=== PATIENT | male | born 1930 | race Caucasian/White ===

== ENCOUNTER 2018-04-14 10:17 | Inpatient (IN) ==
[2018-04-14] MEDS ORDERED: CEFTRIAXONE (ER USE ONLY) 1 GM in NS 100 ML IV ONE (10:24)
[2018-04-14] MEDS ORDERED: NS 1,000 ML IV ONE (10:29)
[2018-04-14] MEDS: SALINE FLUSH 10ml SYRINGE IVF PRN (11:26)
--- NOTE | 2018-04-14 11:30 | Emergency Department Report ---
SOB HPI - General Chief Complaint: Shortness of Breath/Dyspnea Stated Complaint: soa - History of Present Illness 87-year-old male presents by EMS with acute shortness of breath. Patient had 2 episodes of reflux last night and may have choked. He is recovering from a pneumonia and has just finished treatment. He did vomit once this morning. Required 2-4 L of oxygen at the group home, prior to this morning did not require any. He has been increasingly weak over the last 2 days. - Related Data Home Medications Medication Instructions Recorded Confirmed Acetaminophen 650 mg PO BID 04/14/18 04/14/18 Acetaminophen [Acetaminophen Extra 500 mg PO Q4H PRN 04/14/18 04/14/18 Strength] Albuterol/Ipratropium [Duoneb] 1 unit AEROSOL QID PRN 04/14/18 04/14/18 Amlodipine [Norvasc] 10 mg PO WS 04/14/18 04/14/18 Aspirin [Adult Aspirin] 81 mg PO DAILY 04/14/18 04/14/18 Atorvastatin [Lipitor] 20 mg PO WS 04/14/18 04/14/18 Bisacodyl Supp [Dulcolax] 10 mg RECTALLY DAILY PRN 04/14/18 04/14/18 Docusate Sodium [Colace] 100 mg PO BID PRN 04/14/18 04/14/18 Latanoprost [Latanoprost] 1 drop EACH EYE HS 04/14/18 04/14/18 Magnesium Hydroxide [Milk of 30 ml PO DAILY PRN 04/14/18 04/14/18 Magnesia] Magnesium Oxide [Magnesium] 400 mg PO BIDWM 04/14/18 04/14/18 Mirtazapine [Remeron] 15 mg PO HS 04/14/18 04/14/18 Nitroglycerin [Nitrostat] 0.4 mg SL Q5MIN3 PRN 04/14/18 04/14/18 Ondansetron HCl [Zofran] 4 mg PO TIDWM 04/14/18 04/14/18 Pantoprazole Sodium [Protonix] 40 mg PO BIDBS 04/14/18 04/14/18 Pramipexole Di-HCl [Mirapex] 0.125 mg PO HS 04/14/18 04/14/18 Pramoxine HCl/Menthol [Gold Menendez 1 applicatio TP TID PRN 04/14/18 04/14/18 Med Anti-Itch Cream] Ranitidine [Zantac] 150 mg PO HS 04/14/18 04/14/18 Sennosides [Senna] 8.6 mg PO DAILY 04/14/18 04/14/18 Sucralfate [Carafate] 1 gm PO QID 04/14/18 04/14/18 Tramadol [Ultram] 50 mg PO BID 04/14/18 04/14/18 hydroCHLOROthiazide 25 mg PO DAILY 04/14/18 04/14/18 [Hydrochlorothiazide] Allergies Allergy/AdvReac Type Severity Reaction Status Date / Time No Known Drug Allergies Allergy Unknown Verified 04/14/18 10:20 Review of Systems All systems: reviewed and negative except as stated [facility] Medical History (Last Reviewed 04/05/18 @ 09:08 by Mouna Locke MD) Angina at rest (Acute Medical) Bone disorder (Acute Medical) CAD (coronary artery disease) (Acute Medical) Cataracts, bilateral (Acute Medical) GERD (gastroesophageal reflux disease) (Acute Medical) Glaucoma (Acute Medical) Heart attack (Acute Medical) High cholesterol (Acute Medical) Hypertension (Acute Medical) Prostate cancer (Acute Medical) Surgical History: 1. Right inguinal hernia repair at some time when the patient was in his 30s at [facility] at [place], [place]. 2. Left inguinal hernia repair at some time when the patient was in his 30s at [place], [place]. 3. Appendectomy at some time in the 1960s at [place], [place]. 4. Ankle operation at some time of the by Dr. Silva at [facility] at [place], [place]. 5. Prostate biopsy in 2005 or 2006 performed for evaluation of an elevated PSA. The patient was found to have prostate cancer at this time. This was treated with radiation therapy with CyberKnife treatment. 6. Cardiac catheterization with placement of a coronary artery stent in [address] Garcia at [facility] at [place], [place]. 7. Cardiac catheterization with placement of a coronary artery stent at the left anterior descending coronary artery on 12/21/[address] Hyatt at [facility] at [place], [place]. Discharge diagnoses for this hospitalization were unstable angina, hypertension, gastroesophageal reflux disease, history of coronary artery disease, history of hyperlipidemia and history of prostatic malignancy. 8. Cardiac catheterization with placement of drug-eluting coronary artery stent at the second marginal coronary artery on 02/21/[address] Hyatt at [facility] at [place], [place]. 9. Colonoscopy on 08/07/[address] Raygoza at [facility] at [place], [place]. The patient was found to have descending and sigmoid colon diverticulosis at the time of this procedure. Findings were otherwise normal. Postoperative diagnosis was family history of colon carcinoma. 10. Laser surgery on the eyes to treat glaucoma in 2014 at [place], [place]. Family History: Family History (Last Reviewed 04/05/18 @ 09:08 by Mouna Locke MD) Father GI bleed Cancer of colon Sister High blood pressure Stroke - Social History Smoking status: Former smoker Substance use type: does not use Alcohol intake: never Household members: none Current occupational status: retired Physical Exam - Limitations Limitations: no limitations - General General appearance: alert - Normal Exams: Head:: Normocephalic without trauma Cardiovascular:: without murmur or gallop, Pulses 2+ all extremities, capillary refill, <2 seconds all extremities Abdomen:: Bowel sounds positive, soft, non-tender, non-distended, no hepatosplenomegaly, masses or bruits noted Psychiatric:: Patient exhibits, appropriate attention, emotion and affect - Chest Chest inspection: Present: normal inspection, symmetric chest wall rise. Absent : tenderness - Respiratory Respiratory exam: Present: crackles (minimal but left greater than right) Course Vital Signs Temperature 99.9 F 04/14/18 10:17 Pulse Rate 99 04/14/18 10:17 Respiratory Rate 22 04/14/18 10:17 Blood Pressure 147/67 H 04/14/18 10:17 Pulse Oximetry 94 04/14/18 10:17 Temperature 99.9 F 04/14/18 10:17 Pulse Rate 99 04/14/18 10:17 Respiratory Rate 22 04/14/18 10:17 Blood Pressure 147/67 H 04/14/18 10:17 Pulse Oximetry 94 04/14/18 10:17 Shortness of Breath/Dyspnea - Lab Data Result diagrams: 04/14/18 11:00 04/14/18 11:00 Lab Results 04/14/18 04/14/18 04/14/18 Range/Units 11:00 11:00 11:00 WBC 16.6 H (4.5-11.0) T/MM3 RBC 4.45 L (4.50-5.90) M/MM3 Hgb 12.5 L (13.5-17.5) GM/DL Hct 38.2 L (41-53) % MCV 85.8 (80-100) UM3 MCH 28.1 (26-34) UUG MCHC 32.7 (31-37) GM/DL RDW Std Deviation 42.8 (36.9-50.2) FL Plt Count 369 (130-400) T/MM3 MPV 9.4 (9.4-12.4) UM3 Immature Gran % (Auto) Not performed Neut % (Auto) Not performed Lymph % (Auto) Not performed [place] % (Auto) Not performed Eos % (Auto) Not performed Baso % (Auto) Not performed Neut # (Auto) Not performed Lymph # (Auto) Not performed [place] # (Auto) Not performed Eos # (Auto) Not performed Baso # (Auto) Not performed Abs Immat Gran (auto) Not performed D-Dimer 654 H (0-230) NG/ML ABG pH (7.350-7.450) ABG pCO2 (34.0-45.0) MMHG ABG pO2 (80.0-100.0) MMHG ABG HCO3 (22.0-26.0) MEQ/L ABG Total CO2 (23.0-27.0) MEQ/L ABG O2 Saturation (95.0-98.0) % ABG Base Excess (-2.0-2.0) MMOL/L O2 Delivery Method FiO2 (liters per min) LPM Plasma Lactate 1.3 (0.6-2.2) MMOL/L 04/14/18 Range/Units 11:22 WBC (4.5-11.0) T/MM3 RBC (4.50-5.90) M/MM3 Hgb (13.5-17.5) GM/DL Hct (41-53) % MCV (80-100) UM3 MCH (26-34) UUG MCHC (31-37) GM/DL RDW Std Deviation (36.9-50.2) FL Plt Count (130-400) T/MM3 MPV (9.4-12.4) UM3 Immature Gran % (Auto) Neut % (Auto) Lymph % (Auto) [place] % (Auto) Eos % (Auto) Baso % (Auto) Neut # (Auto) Lymph # (Auto) [place] # (Auto) Eos # (Auto) Baso # (Auto) Abs Immat Gran (auto) D-Dimer (0-230) NG/ML ABG pH 7.496 H (7.350-7.450) ABG pCO2 39 (34.0-45.0) MMHG ABG pO2 75.7 L (80.0-100.0) MMHG ABG HCO3 30.2 H (22.0-26.0) MEQ/L ABG Total CO2 31.4 H (23.0-27.0) MEQ/L ABG O2 Saturation 96.1 (95.0-98.0) % ABG Base Excess 6.5 H (-2.0-2.0) MMOL/L O2 Delivery Method Cannula FiO2 (liters per min) 3.5 LPM Plasma Lactate (0.6-2.2) MMOL/L - Radiology Data Attestation: I reviewed the patient's radiology results. - EKG Data EKG #1 EKG attestation: Yes: I reviewed and interpreted this EKG. EKG results narrative: 94 bpm EKG shows normal: sinus rhythm Rate: normal Rhythm: NSR [place]/QRS: left axis deviation Interpretation: nonspecific ST-T wave changes Disposition Prescriptions: No Action Acetaminophen [Acetaminophen Extra Strength] 500 mg PO Q4H PRN PRN Reason: Pain Docusate Sodium [Colace] 100 mg PO BID PRN PRN Reason: Constipation Nitroglycerin [Nitrostat] 0.4 mg SL Q5MIN3 PRN PRN Reason: Chest Pain Magnesium Hydroxide [Milk of Magnesia] 30 ml PO DAILY PRN PRN Reason: Constipation Ranitidine [Zantac] 150 mg PO HS Albuterol/Ipratropium [Duoneb] 1 unit AEROSOL QID PRN PRN Reason: Shortness Of Air/Wheezing Sucralfate [Carafate] 1 gm PO QID Sennosides [Senna] 8.6 mg PO DAILY Pramipexole Di-HCl [Mirapex] 0.125 mg PO HS Pantoprazole Sodium [Protonix] 40 mg PO BIDBS Ondansetron HCl [Zofran] 4 mg PO TIDWM Mirtazapine [Remeron] 15 mg PO HS Latanoprost [Latanoprost] 1 drop EACH EYE HS hydroCHLOROthiazide [Hydrochlorothiazide] 25 mg PO DAILY Atorvastatin [Lipitor] 20 mg PO WS Aspirin [Adult Aspirin] 81 mg PO DAILY Amlodipine [Norvasc] 10 mg PO WS Acetaminophen 650 mg PO BID Pramoxine HCl/Menthol [Gold Menendez Med Anti-Itch Cream] 1 applicatio TP TID PRN PRN Reason: Itching Bisacodyl Supp [Dulcolax] 10 mg RECTALLY DAILY PRN PRN Reason: Constipation Tramadol [Ultram] 50 mg PO BID Magnesium Oxide [Magnesium] 400 mg PO BIDWM Referrals: Analisa York MD [Primary Care Provider] -
[2018-04-14] MEDS ORDERED: SALINE FLUSH 10ml SYRINGE ONE ×2 (11:42→12:35)
[2018-04-14] MEDS ORDERED: IOHEXOL 350mg/ml 75ml INJECTION ONE (11:42)
[2018-04-14 15:24] VITALS: BMI 25.5
--- NOTE | 2018-04-14 16:23 | History & Physical Report ---
History of Present Illness Date: 04/14/18 Chief complaint: SOA, fever HPI: Patient is an 87 yo male who presented to ER this am by EMS from [place] due to acute SOA. His sats at the NE this am were in the low 70's. He usually requires no O2. He reports he had chills and a temp of 101 when he woke up. When he sat up in bed to use the bathroom, he became nauseous and vomited this morning. He has severe reflux and sleeps with the head of his bed elevated. He was recently hospitalized at [facility] (03/02-03/06) for aspiration pneumonia and UTI. Daughter reports he had elevated liver enzymes during the stay with no definitive etiology. They resolved spontaneously. Had neg MRCP and Hepatitis panel and most likely dx was a passed gallstone. He was hospitalized in [place] March 24- for n/v and low Mg, K. On March 27, he woke up and had foot pain and swelling. He has no known injury, but at this time, he was living at home independently and daughter reports he has short term memory issues. 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 Since this injury, he has been in full care at [place] on non-weight bearing status. Up until this am, he reports he was feeling ok. His daughter reports pt has no appetite and that he worries about what he eats b/c of his reflux. He has no trouble swallowing and has had multiple swallow studies on previous hospitalizations which daughter reports were nl. He had an esophagram on 02/08/18 which revealed severe GERD. He had an EGD performed 02/19/[address] Stack which showed distal esophagitis with multiple erosions at distal esophagus and shallow pyloric channel ulcer, neg h pylori. In ER, pt had CXR and CTA showing b/l pulmonary infiltrates, required 4L of O2 to keep sats>90% and received a liter of NS and 1gram of Rocephin. WBC 16.6, elevated D Dimer, potassium 3.4. Neg UA and influenza. Review of Systems All systems PM: 10-point ROS was reviewed, no additional remarkable complaints except Review of systems: GERD, vomiting this am, fever, chills, SOA, some cough Past Medical History Medical History: Medical History (Last Updated 04/14/18 @ 16:48 by JOAN Alexis) Muscle disorder Angina at rest CAD (coronary artery disease) Cataracts, bilateral GERD (gastroesophageal reflux disease) Glaucoma Heart attack High cholesterol Hypertension Prostate cancer Surgical History: 1. Right inguinal hernia repair at some time when the patient was in his 30s at [facility] at [place], [place]. 2. Left inguinal hernia repair at some time when the patient was in his 30s at [place], [place]. 3. Appendectomy at some time in the at [place], [place]. 4. Ankle operation at some time of the by Dr. Silva at [facility] at [place], [place]. 5. Prostate biopsy in 2005 or 2006 performed for evaluation of an elevated PSA. The patient was found to have prostate cancer at this time. This was treated with radiation therapy with CyberKnife treatment. 6. Cardiac catheterization with placement of a coronary artery stent in [address] Garcia at [facility] at [place], [place]. 7. Cardiac catheterization with placement of a coronary artery stent at the left anterior descending coronary artery on 12/21/[address] Hyatt at [facility] at [place], [place]. Discharge diagnoses for this hospitalization were unstable angina, hypertension, gastroesophageal reflux disease, history of coronary artery disease, history of hyperlipidemia and history of prostatic malignancy. 8. Cardiac catheterization with placement of drug-eluting coronary artery stent at the second marginal coronary artery on 02/21/[address] Hyatt at [facility] at [place], [place]. 9. Colonoscopy on 08/07/[address] Raygoza at [facility] at [place], [place]. The patient was found to have descending and sigmoid colon diverticulosis at the time of this procedure. Findings were otherwise normal. Postoperative diagnosis was family history of colon carcinoma. 10. Laser surgery on the eyes to treat glaucoma in 2014 at [place], [place]. 11. EGD 02/19/18 (Dr Stack) -distal esophagitis, pyloric channel ulcer, neg h pylori. Family History: Family History Father GI bleed Cancer of colon Sister High blood pressure Stroke Family History: As Above - Social History Smoking status: Former smoker (smoked for 2 yrs in his 20's) Substance use type: does not use Alcohol intake frequency: does not drink Housing: group home (full care ([place]) (prior to March 27 pt lived at home in [facility])) Current occupational status: retired (patient insurance clerk) Social history: PCP- Analisa York. Currently under the care of Dr Carmona while at [place]. Cardiology - Dr. Hyatt Medications Home Medications Medication Instructions Recorded Confirmed Type Acetaminophen 650 mg PO BID 04/14/18 04/14/18 History Acetaminophen [Acetaminophen Extra 500 mg PO Q4H PRN 04/14/18 04/14/18 History Strength] Albuterol/Ipratropium [Duoneb] 1 unit AEROSOL QID PRN 04/14/18 04/14/18 History Amlodipine [Norvasc] 10 mg PO WS 04/14/18 04/14/18 History Aspirin [Adult Aspirin] 81 mg PO DAILY 04/14/18 04/14/18 History Atorvastatin [Lipitor] 20 mg PO WS 04/14/18 04/14/18 History Bisacodyl Supp [Dulcolax] 10 mg RECTALLY DAILY PRN 04/14/18 04/14/18 History Docusate Sodium [Colace] 100 mg PO BID PRN 04/14/18 04/14/18 History Latanoprost [Latanoprost] 1 drop EACH EYE HS 04/14/18 04/14/18 History Magnesium Hydroxide [Milk of 30 ml PO DAILY PRN 04/14/18 04/14/18 History Magnesia] Magnesium Oxide [Magnesium] 400 mg PO BIDWM 04/14/18 04/14/18 History Mirtazapine [Remeron] 15 mg PO HS 04/14/18 04/14/18 History Nitroglycerin [Nitrostat] 0.4 mg SL Q5MIN3 PRN 04/14/18 04/14/18 History Ondansetron HCl [Zofran] 4 mg PO TIDWM 04/14/18 04/14/18 History Pantoprazole Sodium [Protonix] 40 mg PO BIDBS 04/14/18 04/14/18 History Pramipexole Di-HCl [Mirapex] 0.125 mg PO HS 04/14/18 04/14/18 History Pramoxine HCl/Menthol [Gold Menendez 1 applicatio TP TID PRN 04/14/18 04/14/18 History Med Anti-Itch Cream] Ranitidine [Zantac] 150 mg PO HS 04/14/18 04/14/18 History Sennosides [Senna] 8.6 mg PO DAILY 04/14/18 04/14/18 History Sucralfate [Carafate] 1 gm PO QID 04/14/18 04/14/18 History Tramadol [Ultram] 50 mg PO BID 04/14/18 04/14/18 History hydroCHLOROthiazide 25 mg PO DAILY 04/14/18 04/14/18 History [Hydrochlorothiazide] Allergies Allergy/AdvReac Type Severity Reaction Status Date / Time No Known Drug Allergies Allergy Unknown Verified 04/14/18 10:20 Exam Vital Signs: Temperature 97.8 F 04/14/18 15:21 Pulse Rate 90 04/14/18 15:21 Respiratory Rate 20 04/14/18 15:21 Blood Pressure 136/67 04/14/18 15:21 Pulse Oximetry 93 04/14/18 15:21 Height/Weight/BMI: Height 1.63 m Weight 67.6 kg Body Mass Index 25.5 - Constitutional Present: no acute distress, well nourished, well developed - Routine HEENT Exam Head: Present: normocephalic, atraumatic Eye: Present: EOMI, PERRL ENT: Present: mucous membranes moist, oropharynx clear - Routine Neck Exam Present: supple. Absent: lymphadenopathy, thyromegaly - Routine Respiratory Exam Present: CTA bilaterally. Absent: wheezes - Routine Cardiovascular Exam Present: RRR, no murmur - Routine Abdominal Exam Present: soft, normoactive bowel sounds. Absent: tenderness, distended - Routine Extremities Exam Present: no edema, normal capillary refill Comments: LE atrophy (chronic). R lower leg/foot casted. - Routine Skin Exam Present: dry, warm - Routine Neurological Exam Present: alert, oriented X3, CN II-XII intact - Routine Psychiatric Exam Present: normal affect, cooperative Results - Labs CBC & Chem 7: 04/14/18 11:00 04/14/18 11:00 - Imaging and Cardiology CT scan - chest Additional comments: b/l pulmonary infiltrates -worse in L lung Assessment and Plan (1) Acute respiratory failure with hypoxia Current visit: Yes Status: Acute (2) Aspiration pneumonia Current visit: Yes Status: Acute Assessment and Plan: Assessment Respiratory failure with hypoxia Aspiration pneumonia - likely secondary to severe GERD Severe GERD Hypokalemia Right metatarsal fractures - currently casted and on non-weightbearing status Erosive esophagitis/shallow pyloric channel ulcer CAD (H/o CO and stent placement x 3) High cholesterol Hypertension Prostate cancer (tx with radiation) Cataracts, bilateral Glaucoma Short term memory loss Plan Admit, IP Has already received Rocephin in ER. Dr. Greene to determine further antibiotic regimen. BSx2 drawn in ER. Lactate was neg - reflex order DC'd. Repeat labs in am to follow blood counts and renal function. Sputum culture. Duonebs, acapella, O2 prn. Continue PPI, Zantac and carafate. Elevate HOB. ST, OT, PT. Will allow cardiac diet (daughter prefers avoiding milk/ice cream as she feels this worsens his GERD) after bedside swallow eval as he has had w- u for aspiration and etiology is not a swallowing issue. Bowel motivation w/ senna, docusate (per daughter request) and Miralax as pt has decreased rectal tone resulting from radiation to prostate. Non-weightbearing to RLE. Lovenox/SCD's for DVT Ppx. Code status reviewed with pt and daughter - DNR. Care to return to Dr. Carmona on dismissal back to [place]. DVT Prophylaxis: SCD's - Physician Narrative Physician: Racquel Greene MD Narrative: Date: 04/14/18 Time: 1829 I have independently evaluated and examined this patient. I reviewed the chart, the patient's history, and the PHOTOGRAPHIC COLORIST/PA's documented findings as above. We discussed and formulated the assessment and plan as above with additions as below: Mr. Walker was reported to have several episodes of reflux last night with possible choking and suspected aspiration. This morning he was hypoxic and per EMS records had a temperature of 103.9. He was transferred to the emergency room where x-ray revealed left-sided infiltrate and CTA confirmed infiltrates bilaterally left > right. Patient is admitted for management of probable aspiration pneumonia. When seen late this afternoon he reported he was breathing more comfortably and denied pleuritic pain. NAD, soft spoken, mild flattening of the left nasolabial fold Respirations nonlabored, decreased breath sounds bilaterally without wheezing, crackles, coarse sounds. Abdomen benign Chest x-ray reviewed by [id number] patchy infiltrates CTA also reviewed by myself demonstrating left greater than right infiltrates; report reviewed-no evidence of PE. Elevated white count, potassium slightly depressed. Given recent hospitalization a believe expanded antibiotics are necessary to cover for healthcare associated pathogens. Will initiate vancomycin and Zosyn initially; will hold off on adding Levaquin due to patient's underlying muscle disorder. Oxygen titrated from 4 L to 2 L this afternoon. Potassium supplemented-reassess in a.m. Hospital Course Summary Disclaimer: The visit summary below is not to be considered part of the above Progress Note. Hospital Course: 04/14/18 Admit, IP Has already received Rocephin in ER. Converted to Zosyn/vancomycin due to recent hospitalization and need for healthcare pathogen coverage. BSx2 drawn in ER. Lactate was neg - reflex order DC'd. Repeat labs in am to follow blood counts and renal function. Sputum culture. Duonebs, acapella, O2 prn. Continue PPI, Zantac and carafate. Elevate HOB. ST, OT, PT. Will allow cardiac diet (daughter prefers avoiding milk/ice cream as she feels this worsens his GERD) after bedside swallow eval as he has had w- u for aspiration and etiology is not a swallowing issue. Bowel motivation w/ senna, docusate (per daughter request) and Miralax as pt has decreased rectal tone resulting from radiation to prostate. Non-weightbearing to RLE. Lovenox/SCD's for DVT Ppx. Code status reviewed with pt and daughter - DNR. Care to return to Dr. Carmona on dismissal back to [place].
[2018-04-14] MEDS ORDERED: ALBUTEROL/IPRATROPIUM 2.5mg-0.5mg/3ml NEB AEROSOL PRN (17:12)
[2018-04-14] MEDS ORDERED: ACETAMINOPHEN 500 MG TABLET PO PRN (17:12)
[2018-04-14] MEDS ORDERED: GOLD BOND TP PRN (17:12)
[2018-04-14] MEDS ORDERED: BISACODYL 10 MG SUPPOSITORY RECTALLY PRN (17:12)
[2018-04-14] MEDS ORDERED: NITROGLYCERIN 0.4 MG SUBLINGUAL TABLET SL PRN (17:12)
[2018-04-14] MEDS ORDERED: ATORVASTATIN 20 MG TABLET PO SCH (17:30)
[2018-04-14] MEDS ORDERED: VANCOMYCIN - PHARMACY CONSULT MC ONE (18:28)
[2018-04-14] MEDS: ONDANSETRON 4 MG TABLET PO SCH (18:28)
[2018-04-14] MEDS: PANTOPRAZOLE 40 MG TABLET PO SCH (18:29)
[2018-04-14] MEDS: MAGNESIUM OXIDE 400 MG TABLET PO SCH (18:29)
[2018-04-14] MEDS: AMLODIPINE 10 MG TABLET PO SCH (18:29)
[2018-04-14] MEDS: PIPERACILLIN/TAZOBACTAM 4.5 GM in NS 100 ML IV SCH (20:11)
[2018-04-14] MEDS ORDERED: NS FLUSH BAG 500ml IV PRN (20:13)
[2018-04-14] MEDS: ALBUTEROL/IPRATROPIUM 2.5mg-0.5mg/3ml NEB AEROSOL SCH (20:40)
[2018-04-14] MEDS ORDERED: SUCRALFATE 1 GM TABLET PO SCH (21:00)
[2018-04-14] MEDS ORDERED: PRAMIPEXOLE DI HCL 0.125 MG PO SCH (21:00)
[2018-04-14] MEDS: TRAMADOL 50 MG TABLET PO SCH (21:55)
[2018-04-14] MEDS: ACETAMINOPHEN 325 MG TABLET PO SCH (21:56)
[2018-04-14] MEDS: MIRTAZAPINE 15 MG TABLET PO SCH (21:57)
[2018-04-14] MEDS: RANITIDINE 150 MG TABLET PO SCH (21:58)
[2018-04-15] MEDS: PIPERACILLIN/TAZOBACTAM 4.5 GM in NS 100 ML IV SCH ×5 (01:28→23:42)
[2018-04-15] MEDS: LATANOPROST 0.005% EYE DROPS 2.5ml EACH EYE SCH ×2 (06:31→21:23)
[2018-04-15] MEDS: SUCRALFATE 1 GM TABLET PO SCH ×4 (06:52→21:22)
[2018-04-15] MEDS: ALBUTEROL/IPRATROPIUM 2.5mg-0.5mg/3ml NEB AEROSOL SCH ×4 (07:26→19:36)
--- NOTE | 2018-04-15 09:46 | Pharmacy Consult-Antibiotics ---
Pharmacy Consult-Vancomycin - Laboratory Information WBC 10.9 T/MM3 (4.5-11.0) 04/15/18 04:21 BUN 19.0 MG/DL (9-20) 04/15/18 04:20 Creatinine 1.1 mg/dL (0.8-1.5) 04/15/18 04:20 - Consult Information VANCOMYCIN CONSULT: Day2 Dx: Pneuomonia Current Renal Fx: SCr = 1.1 mg/dl. Estimated Cr Cl = 45 mL/min Started Vancomycin 1,000 mg iv every 12 hours and will give two dose at that frequency and then change the Vancomycin to 1,000 mg iv every 18 hours starting 04/16 @ 0300. The Pharmacy will continue to monitor and adjust regimen to maintain therapeutic levels. Thank you. Collin Strickland, Pharmacist
[2018-04-15] MEDS: PANTOPRAZOLE 40 MG TABLET PO SCH ×2 (10:05→17:57)
[2018-04-15] MEDS: ACETAMINOPHEN 325 MG TABLET PO SCH ×2 (10:05→21:23)
[2018-04-15] MEDS: ONDANSETRON 4 MG TABLET PO SCH ×3 (10:06→17:57)
[2018-04-15] MEDS: MAGNESIUM OXIDE 400 MG TABLET PO SCH ×2 (10:06→17:57)
[2018-04-15] MEDS: ASPIRIN *EC* 81 MG TABLET PO SCH (10:06)
[2018-04-15] MEDS: ENOXAPARIN 40 MG/0.4 ML INJECTION SQ SCH (10:06)
--- NOTE | 2018-04-15 11:02 | CT Scan Report ---
Indication: dyspnea sudden onset, elevated d-dimer PROCEDURE: CT angio pulm emboli: Encounter: Initial Comparison: None Technique: Axial CT pulmonary angiographic phase images were performed through the chest after the administration of intravenous contrast. Coronal and Sagittal MIP reconstructed images were created and reviewed. Automated Exposure Control and Iterative Reconstruction dose reducing techniques were utilized. Contrast: Omnipaque 350 74 mL Findings: Pulmonary arteries: Exam is diagnostic to the subsegmental pulmonary arterial level. No filling defects identified to suggest a pulmonary embolus. Other findings: Patchy groundglass areas of airspace opacity and airspace consolidation noted in the left upper and left lower lobes. Minimal airspace opacity in the right lower lobe. No pneumothorax. No pleural effusion. No axillary or mediastinal adenopathy. Heart size is normal. Small pericardial effusion. The upper abdomen shows large gallstones. Impression: No pulmonary embolus. Left-sided pneumonia. There is a preliminary report by virtual radiologic. .
--- NOTE | 2018-04-15 11:20 | XRay Report ---
INDICATION: dyspnea, soa PROCEDURE: CHEST 2-VIEWS UPRIGHT (PA & LAT) Encounter: Initial COMPARISON: CT chest from the same date FINDINGS: Left-sided airspace consolidation is again noted and better evaluated on the CT. Right lung is radiographically clear. No gross pleural effusion or pneumothorax. Heart size and mediastinal contours are stable. Pulmonary vascularity appears normal. Impression: Left-sided pneumonia or aspiration. .
[2018-04-15] MEDS: TRAMADOL 50 MG TABLET PO SCH ×2 (11:25→21:22)
[2018-04-15] MEDS: POLYETHYL GLYCOL 3350 17gm PACKET PO SCH (11:25)
[2018-04-15] MEDS: SENNOSIDES 8.6 MG TABLET PO SCH (11:26)
[2018-04-15] MEDS: LIDOCAINE 1% 2ml INJ 10 MG, POTASSIUM CHLORIDE INJ 10 MEQ in NS 100 ML IV SCH ×4 (11:30→17:23)
[2018-04-15] MEDS ORDERED: PNEUMOCOCCAL 13 VACCINE 0.5ml INJECTION IM ONE (13:56)
--- NOTE | 2018-04-15 14:35 | Progress Note ---
- Date 04/15/18 Subjective: Mr. Walker reported that he felt really cold and shaky inside at that his teeth hadn't started chattering yet when I saw him late this morning. He reports that this is how he felt yesterday before coming to the hospital and that he was shaking all over at that time. This corresponded to development of temperature of 103.8 per EMS report. Nursing reported that the patient briefly lost consciousness while they were working in the room earlier and looks at them blankly and had some brief shaking. Patient reports that he was coughing vigorously and reports that he coughed so hard that his head began to swirl and he felt like he passed out at that time corresponding when the nurse was in the room. He denies dyspnea today but reports he continues to cough out intermittently with no sputum production. He's had no nausea and was able to eat earlier today without any difficulty; he reports no apparent reflux yesterday evening or today. He slept well. He denies chest pain or pleuritic chest pain. Objective Vital signs: Temperature 97.3 F 04/15/18 07:39 Pulse Rate 75 04/15/18 07:39 Respiratory Rate 18 04/15/18 10:29 Blood Pressure 108/65 04/15/18 07:39 Pulse Oximetry 98 -2 L 04/15/18 10:29 NAD, alert Obviously chilling at time of my exam (not rigors however), skin temperature is warm but not hot Conjunctiva clear, sclera anicteric, neck supple Respirations are nonlabored with good airflow breath sounds are coarse at the left lung field posteriorly 1/2 up; no wheezing appreciated Regular rhythm, S1-S2, soft systolic murmur Abdomen is soft, nontender, and bowel sounds are present Extremities without edema Patient moving upper extremities well; right lower extremity in a short leg cast Height/Weight/BMI: Height 1.63 m Weight 67.8 kg Body Mass Index 25.5 Results - Labs CBC & Chem 7: 04/15/18 04:21 04/15/18 04:20 Microbiology Results: Microbiology 04/15/18 13:08 Peripheral/Iv Start Blood Culture - Preliminary Culture Initiated - Results Pending 04/15/18 13:14 Peripheral/Iv Start Blood Culture - Preliminary Culture Initiated - Results Pending Blood cultures 2 and urine culture obtained 6/9/18 all no growth after 1 day Assessment and Plan (1) Acute respiratory failure with hypoxia Current visit: Yes Status: Acute (2) Aspiration pneumonia Current visit: Yes Status: Acute Assessment and Plan: Assessment Respiratory failure with hypoxia Aspiration pneumonia - likely secondary to severe GERD Severe GERD Hypokalemia Right metatarsal fractures - currently casted and on non-weightbearing status Erosive esophagitis/shallow pyloric channel ulcer CAD (H/o [place] and stent placement x 3) High cholesterol Hypertension Prostate cancer (tx with radiation) Cataracts, bilateral Glaucoma Short term memory loss Hypokalemia Probable cough syncope 04/15/18 Plan: Blood cultures drawn this morning shortly after patient was having episode of chills. Continue current antibiotics pending initial blood cultures-if negative at 48 hours we'll discontinue vancomycin. Oxygenation has improved overall and patient has not had recurrent high-grade fever. MAXIMUM TEMPERATURE following hospitalization 100.2. Leukocytosis significantly improved. Continue respiratory care was with breathing treatments. Continue usual regimen for reflux; speech therapy to reassess in a.m. PT/OT consults in a.m.-nonweightbearing RLE. Hemodynamically stable. Episode with altered loss of consciousness following coughing consistent with cough syncope which may of had minor seizure activity associated with it. Replace potassium orally and IV. Chest x-ray in a.m. Discussed with nursing. DVT Prophylaxis: Lovenox Resuscitation Status: Do Not Intubate - Physician Narrative Narrative: Date: 04/15/18 Time: 1430 Hospital Course Summary Disclaimer: The visit summary below is not to be considered part of the above Progress Note. Hospital Course: 04/14/18 Admit, IP Has already received Rocephin in ER. Converted to Zosyn/vancomycin due to recent hospitalization and need for healthcare pathogen coverage. BSx2 drawn in ER. Lactate was neg - reflex order DC'd. Repeat labs in am to follow blood counts and renal function. Sputum culture. Duonebs, acapella, O2 prn. Continue PPI, Zantac and carafate. Elevate HOB. ST, OT, PT. Will allow cardiac diet (daughter prefers avoiding milk/ice cream as she feels this worsens his GERD) after bedside swallow eval as he has had w- u for aspiration and etiology is not a swallowing issue. Bowel motivation w/ senna, docusate (per daughter request) and Miralax as pt has decreased rectal tone resulting from radiation to prostate. Non-weightbearing to RLE. Lovenox/SCD's for DVT Ppx. Code status reviewed with pt and daughter - DNR. Care to return to Dr. Carmona on dismissal back to [place]. 04/15/18 Blood cultures drawn this morning shortly after patient was having episode of chills. Continue current antibiotics pending initial blood cultures-if negative at 48 hours we'll discontinue vancomycin. Oxygenation has improved overall and patient has not had recurrent high-grade fever. MAXIMUM TEMPERATURE following hospitalization 100.2. Leukocytosis significantly improved. Continue respiratory care was with breathing treatments. Continue usual regimen for reflux; speech therapy to reassess in a.m. PT/OT consults in a.m.-nonweightbearing RLE. Hemodynamically stable. Episode with altered loss of consciousness following coughing consistent with cough syncope which may of had minor seizure activity associated with it. Replace potassium orally and IV.
[2018-04-15] MEDS: AMLODIPINE 10 MG TABLET PO SCH (17:57)
[2018-04-15] MEDS: MIRTAZAPINE 15 MG TABLET PO SCH (21:21)
[2018-04-15] MEDS: RANITIDINE 150 MG TABLET PO SCH (21:21)
[2018-04-15] MEDS: PRAMIPEXOLE 0.25 MG TABLET PO SCH (21:21)
[2018-04-15] MEDS: ATORVASTATIN 20 MG TABLET PO SCH (21:24)
[2018-04-16] MEDS: PIPERACILLIN/TAZOBACTAM 4.5 GM in NS 100 ML IV SCH ×2 (06:26→13:34)
[2018-04-16] MEDS: SUCRALFATE 1 GM TABLET PO SCH ×4 (06:27→20:55)
[2018-04-16] MEDS: ALBUTEROL/IPRATROPIUM 2.5mg-0.5mg/3ml NEB AEROSOL SCH ×4 (07:00→19:48)
[2018-04-16] MEDS: SENNOSIDES 8.6 MG TABLET PO SCH (09:13)
[2018-04-16] MEDS: POLYETHYL GLYCOL 3350 17gm PACKET PO SCH (09:14)
[2018-04-16] MEDS: PANTOPRAZOLE 40 MG TABLET PO SCH ×2 (09:16→16:57)
[2018-04-16] MEDS: MAGNESIUM OXIDE 400 MG TABLET PO SCH ×2 (09:16→16:57)
[2018-04-16] MEDS: ASPIRIN *EC* 81 MG TABLET PO SCH (09:16)
[2018-04-16] MEDS: TRAMADOL 50 MG TABLET PO SCH ×2 (09:16→20:53)
[2018-04-16] MEDS: ONDANSETRON 4 MG TABLET PO SCH ×3 (09:17→16:57)
[2018-04-16] MEDS: ACETAMINOPHEN 325 MG TABLET PO SCH ×2 (09:17→20:52)
[2018-04-16] MEDS: ENOXAPARIN 40 MG/0.4 ML INJECTION SQ SCH (09:17)
--- NOTE | 2018-04-16 09:20 | XRay Report ---
LOCATION OF DICTATION: [facility] EXAM: XR chest 2V HISTORY: pneumonia COMPARISON: No prior studies available for comparison. FINDINGS: The heart size is normal. The mediastinal configuration is unremarkable. There are some mild residual airspace opacities within the left lung base though improved aeration when compared with the previous chest x-ray dated two days earlier suggesting resolving pneumonia. There is no evidence for a pneumothorax. The osseous structures are within normal limits. IMPRESSION: Mild residual though decreased airspace opacities in the left lung base suggesting improved pneumonia. Continued follow-up is recommended to ensure complete resolution. .
--- NOTE | 2018-04-16 09:49 | Progress Note ---
- Date 04/16/18 Subjective: Patient is seen in resting in bed this morning. He thinks he may be feeling a little bit better. He has no pain. Does not c/o chills, n/v. Feels his appetite is improving, as is his breathing. Reports his bowels are moving. Objective Vital signs: Temperature 95.3 F L 04/16/18 07:10 Pulse Rate 77 04/16/18 07:10 Respiratory Rate 18 04/16/18 07:10 Blood Pressure 104/61 04/16/18 07:10 Pulse Oximetry 95 04/16/18 07:10 Height/Weight/BMI: Height 1.63 m Weight 69.1 kg Body Mass Index 25.5 - Constitutional Present: no acute distress, well nourished, well developed - Routine HEENT Exam Head: Present: normocephalic, atraumatic - Routine Respiratory Exam Present: decreased breath sounds (RLL), CTA bilaterally. Absent: wheezes - Routine Cardiovascular Exam Present: RRR, murmur (soft) - Routine Abdominal Exam Present: soft, non distended, non tender - Routine Extremities Exam Present: no edema, normal capillary refill Comments: R foot casted - Routine Skin Exam Present: dry, warm - Routine Neurological Exam Present: alert - Routine Lymphatic Exam Lymphatic: Absent: adenopathy - Routine Psychiatric Exam Present: normal affect, cooperative Results - Labs CBC & Chem 7: 04/16/18 04:14 04/16/18 04:14 Microbiology Results: Microbiology 04/15/18 13:08 Peripheral/Iv Start Blood Culture - Preliminary Culture Initiated - Results Pending 04/15/18 13:14 Peripheral/Iv Start Blood Culture - Preliminary Culture Initiated - Results Pending - Imaging and Cardiology Chest x-ray Additional comments: Date of Exam: 04/16/18 EXAM: XR chest 2V HISTORY: pneumonia FINDINGS: The heart size is normal. The mediastinal configuration is unremarkable. There are some mild residual airspace opacities within the left lung base though improved aeration when compared with the previous chest x-ray dated two days earlier suggesting resolving pneumonia. There is no evidence for a pneumothorax. The osseous structures are within normal limits. IMPRESSION: Mild residual though decreased airspace opacities in the left lung base suggesting improved pneumonia. Continued follow-up is recommended to ensure complete resolution. Assessment and Plan (1) Aspiration pneumonia Current visit: Yes Status: Acute (2) Acute respiratory failure with hypoxia Current visit: Yes Status: Acute Assessment and Plan: Assessment Respiratory failure with hypoxia Aspiration pneumonia - likely secondary to severe GERD Severe GERD Hypokalemia Right metatarsal fractures - currently casted and on non-weightbearing status Erosive esophagitis/shallow pyloric channel ulcer CAD (H/o [place] and stent placement x 3) High cholesterol Hypertension Prostate cancer (tx with radiation) Cataracts, bilateral Glaucoma Short term memory loss Hypokalemia Probable cough syncope 04/15/18 Plan: Continues to require 2L O2 (usually no home O2 requirements) Blood cultures from 04/14 and 04/15 negative thus far. Continue current antibiotics pending initial blood cultures-if negative at 48 hours we'll discontinue vancomycin. CXR this am shows improvement in airspace opacities within the L lung base. Continue respiratory care with breathing treatments. Continue usual regimen for reflux; speech therapy to reassess today. PT/OT consults today-nonweightbearing RLE. Hemodynamically stable. Replace potassium orally. Review of I&O reveals no BM since admission. Increase senna to 17.2 mg and continue Miralax. Offer MOM and/or supp. DVT Prophylaxis: Lovenox Resuscitation Status: Do Not Resuscitate - Physician Narrative Physician: Racquel Greene MD Narrative: Date: 04/16/18 Time: 1455 I have independently evaluated and examined this patient. I reviewed the chart, the patient's history, and the PRINT [employer]UCER/PA's documented findings as above. We discussed and formulated the assessment and plan as above with additions as below: Mr. Walker and reports feeling well. He denied dyspnea at rest and reports minimal cough or sputum production. He's had no nausea and no fever has been described in the past 24 hours. NAD, alert Respirations nonlabored, good airflow, breath sounds clear anteriorly/ posteriorly Chest x-ray reviewed by myself-small left basilar infiltrate. Hemoglobin down from 12.5 on admission 8.7 currently; discharge hemoglobin from [place] on 03/06/18 was 10.7. Initial blood cultures negative at 48 hours. Vancomycin discontinued, Zosyn dose adjusted for renal function. Oxygen titrated to 1 L with maintained oxygen saturation. Doing well-anticipate conversion to oral [id number] and return to [place]. Check Hemoccults although suspect anemia largely chronic/dilutional. Discussed with nursing and case management in addition to pharmacy. [place] records reviewed. Hospital Course Summary Disclaimer: The visit summary below is not to be considered part of the above Progress Note. Hospital Course: 04/14/18 Admit, IP Has already received Rocephin in ER. Converted to Zosyn/vancomycin due to recent hospitalization and need for healthcare pathogen coverage. BSx2 drawn in ER. Lactate was neg - reflex order DC'd. Repeat labs in am to follow blood counts and renal function. Sputum culture. Duonebs, acapella, O2 prn. Continue PPI, Zantac and carafate. Elevate HOB. ST, OT, PT. Will allow cardiac diet (daughter prefers avoiding milk/ice cream as she feels this worsens his GERD) after bedside swallow eval as he has had w- u for aspiration and etiology is not a swallowing issue. Bowel motivation w/ senna, docusate (per daughter request) and Miralax as pt has decreased rectal tone resulting from radiation to prostate. Non-weightbearing to RLE. Lovenox/SCD's for DVT Ppx. Code status reviewed with pt and daughter - DNR. Care to return to Dr. Carmona on dismissal back to [place]. 04/15/18 Blood cultures drawn this morning shortly after patient was having episode of chills. Continue current antibiotics pending initial blood cultures-if negative at 48 hours we'll discontinue vancomycin. Oxygenation has improved overall and patient has not had recurrent high-grade fever. MAXIMUM TEMPERATURE following hospitalization 100.2. Leukocytosis significantly improved. Continue respiratory care was with breathing treatments. Continue usual regimen for reflux; speech therapy to reassess in a.m. PT/OT consults in a.m.-nonweightbearing RLE. Hemodynamically stable. Episode with altered loss of consciousness following coughing consistent with cough syncope which may of had minor seizure activity associated with it. Replace potassium orally and IV. 04/16/18 Blood cultures from 04/14 and 04/15 negative thus far. Continue current antibiotics pending initial blood cultures-if negative at 48 hours we'll discontinue vancomycin. CXR this am shows improvement in airspace opacities within the L lung base. Replace potassium orally. Review of I&O reveals no BM since admission. Increase senna to 17.2 mg and continue Miralax. Offer MOM and/or supp.
--- NOTE | 2018-04-16 14:52 | Pharmacy Consult- Renal Dosing ---
Jesika Pham-Renal Dosing - Laboratory Information 04/15/18 04/16/18 04:20 04:14 BUN 19.0 16.0 Creatinine 1.1 1.2 - Consult Information RENAL DOSING: Today's SCr = 1.2 mg/dl. Calculated CrCl = 40 ml/min. [place] creatinine clearance. Decided to reduce dose to 2.25gm ivpb of Zosyn q6h. Thanks
[2018-04-16] MEDS ORDERED: FALL RISK - PHARMACY CONSULT MC ONE (15:46)
[2018-04-16] MEDS: AMLODIPINE 10 MG TABLET PO SCH (16:57)
[2018-04-16] MEDS: PIPERACILLIN/TAZOBACTAM 2.25 GM in NS 100 ML IV SCH (20:11)
[2018-04-16] MEDS: SALINE FLUSH 10ml SYRINGE IVF PRN (20:11)
[2018-04-16] MEDS: PRAMIPEXOLE 0.25 MG TABLET PO SCH (20:53)
[2018-04-16] MEDS: ATORVASTATIN 20 MG TABLET PO SCH (20:54)
[2018-04-16] MEDS: MIRTAZAPINE 15 MG TABLET PO SCH (20:54)
[2018-04-16] MEDS: RANITIDINE 150 MG TABLET PO SCH (20:54)
[2018-04-16] MEDS: LATANOPROST 0.005% EYE DROPS 2.5ml EACH EYE SCH (20:55)
[2018-04-16] MEDS ORDERED: SENNOSIDES 8.6 MG TABLET PO SCH (21:00)
[2018-04-17] MEDS: PIPERACILLIN/TAZOBACTAM 2.25 GM in NS 100 ML IV SCH ×2 (01:28→07:11)
[2018-04-17] MEDS: SUCRALFATE 1 GM TABLET PO SCH ×2 (07:11→11:30)
[2018-04-17] MEDS: ALBUTEROL/IPRATROPIUM 2.5mg-0.5mg/3ml NEB AEROSOL SCH ×3 (07:29→14:57)
--- NOTE | 2018-04-17 08:34 | Discharge Summary ---
Discharge Information Date of admission: 04/14/18 14:43 Anticipated date of discharge: 04/17/18 Attending Physician: Gildardo Bermudez MD Primary care physician: Analisa oYrk MD Consults: None - Discharge Diagnosis (1) Aspiration pneumonia Status: Acute (2) Acute respiratory failure with hypoxia Status: Acute Discharge diagnosis Aspiration pneumonia - likely secondary to severe GERD Associated conditions and complications Respiratory failure with hypoxia Severe GERD Hypokalemia Right metatarsal fractures - currently casted and on non-weightbearing status Erosive esophagitis/shallow pyloric channel ulcer CAD (H/o [place] and stent placement x 3) High cholesterol Hypertension Prostate cancer (tx with radiation) Cataracts, bilateral Glaucoma Short term memory loss Hypokalemia Probable cough syncope 04/15/18 - Laboratory Labs: Dismissal labs 04/17/18 04/17/18 04/17/18 08:58 09:28 09:28 WBC Cancelled 8.8 RBC 3.92 L Hgb 11.0 L D Hct 33.9 L D MCV 86.5 MCH 28.1 MCHC 32.4 Plt Count 287 Sodium 143 Potassium 4.6 D Chloride 110 H Carbon Dioxide 24 Anion Gap 9 BUN 10.0 Creatinine 1.0 D GFR Calculation 71 BUN/Creatinine Ratio 10 Glucose 112 H Calculated Osmolality 275 Calcium 8.4 Specimen Hemolysis 53 H Admission labs 04/14/18 04/14/18 04/14/18 11:00 11:00 11:00 WBC 16.6 H RBC 4.45 L Hgb 12.5 L Hct 38.2 L MCV 85.8 MCH 28.1 MCHC 32.7 Plt Count 369 Sodium 141 Potassium 3.4 L Chloride 100 Carbon Dioxide 31 H Anion Gap 10 BUN 21.0 H Creatinine 1.2 GFR Calculation 58 Glucose 103 Calculated Osmolality 274 Calcium 8.8 Magnesium 2.1 Total Bilirubin 1.00 AST 28 ALT 16 Alkaline Phosphatase 142 H Troponin I < 0.012 NT-Pro-B Natriuret Pep 152 Total Protein 6.6 Albumin 3.5 Globulin 3.1 Albumin/Globulin Ratio 1.1 Plasma Lactate 1.3 UA 04/14/18 12:07 Ur Collection Type Urine, void-cc/notcc Urine Color Yellow Urine Clarity Clear Urine pH 7.0 Ur Specific [place] 1.015 Urine Protein Negative Urine Glucose (UA) Negative Urine Ketones Trace A Urine Occult Blood Negative Urine Nitrate Negative Urine Bilirubin Negative Urine Urobilinogen 0.2 Ur Leukocyte Esterase Negative - Microbiology Blood cultures obtained 04/14 and 04/15 - No growth to date - Radiology Radiology: Date of Exam: 04/16/18 EXAM: XR chest 2V FINDINGS: The heart size is normal. The mediastinal configuration is unremarkable. There are some mild residual airspace opacities within the left lung base though improved aeration when compared with the previous chest x-ray dated two days earlier suggesting resolving pneumonia. There is no evidence for a pneumothorax. The osseous structures are within normal limits. IMPRESSION: Mild residual though decreased airspace opacities in the left lung base suggesting improved pneumonia. Continued follow-up is recommended to ensure complete resolution. Date of Exam: 04/14/18 Indication: dyspnea sudden onset, elevated d-dimer PROCEDURE: CT angio pulm emboli: Pulmonary arteries: Exam is diagnostic to the subsegmental pulmonary arterial level. No filling defects identified to suggest a pulmonary embolus. Other findings: Patchy groundglass areas of airspace opacity and airspace consolidation noted in the left upper and left lower lobes. Minimal airspace opacity in the right lower lobe. No pneumothorax. No pleural effusion. No axillary or mediastinal adenopathy. Heart size is normal. Small pericardial effusion. The upper abdomen shows large gallstones. Impression: No pulmonary embolus. Left-sided pneumonia. History of Present Illness HPI: Patient is an 87 yo male who presented to ER this am by EMS from [place] due to acute SOA. His sats at the [place] this am were in the low 70's. He usually requires no O2. He reports he had chills and a temp of 101 when he woke up. When he sat up in bed to use the bathroom, he became nauseous and vomited this morning. He has severe reflux and sleeps with the head of his bed elevated. He was recently hospitalized at [facility] (03/02-03/06) for aspiration pneumonia and UTI. Daughter reports he had elevated liver enzymes during the stay with no definitive etiology. They resolved spontaneously. Had neg MRCP and Hepatitis panel and most likely dx was a passed gallstone. He was hospitalized in [place] March 24- for n/v and low Mg, K. On March 27, he woke up and had foot pain and swelling. He has no known injury, but at this time, he was living at home independently and daughter reports he has short term memory issues. 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 Since this injury, he has been in full care at [place] on non-weight bearing status. Up until this am, he reports he was feeling ok. His daughter reports pt has no appetite and that he worries about what he eats b/c of his reflux. He has no trouble swallowing and has had multiple swallow studies on previous hospitalizations which daughter reports were nl. He had an esophagram on 02/08/18 which revealed severe GERD. He had an EGD performed 02/19/[address] Stack which showed distal esophagitis with multiple erosions at distal esophagus and shallow pyloric channel ulcer, neg h pylori. In ER, pt had CXR and CTA showing b/l pulmonary infiltrates, required 4L of O2 to keep sats>90% and received a liter of NS and 1gram of Rocephin. WBC 16.6, elevated D Dimer, potassium 3.4. Neg UA and influenza. Objective Vital signs: Temperature 96.0 F L 04/17/18 07:39 Pulse Rate 96 04/17/18 07:39 Respiratory Rate 18 04/17/18 07:39 Blood Pressure 131/67 04/17/18 07:39 Pulse Oximetry 96 04/17/18 07:39 Height/Weight/BMI: Height 1.63 m Weight 68.5 kg Body Mass Index 25.5 - Constitutional Present: no acute distress, well nourished, well developed - Routine HEENT Exam Head: Present: normocephalic, atraumatic - Routine Respiratory Exam Present: CTA bilaterally. Absent: wheezes - Routine Cardiovascular Exam Present: RRR, no murmur - Routine Abdominal Exam Present: soft, non distended, non tender - Routine Extremities Exam Present: edema (trace LLE. RLE casted), normal capillary refill - Routine Skin Exam Present: dry, warm - Routine Neurological Exam Present: alert, oriented X3 - Routine Lymphatic Exam Lymphatic: Absent: adenopathy - Routine Psychiatric Exam Present: normal affect, cooperative Hospital Course This is a general summary of the patient's hospital course. For more details refer to the complete medical record. Hospital course: 04/14/18 Admit, IP Has already received Rocephin in ER. Converted to Zosyn/vancomycin due to recent hospitalization and need for healthcare pathogen coverage. BSx2 drawn in ER. Lactate was neg - reflex order DC'd. Repeat labs in am to follow blood counts and renal function. Sputum culture. Duonebs, acapella, O2 prn. Continue PPI, Zantac and carafate. Elevate HOB. ST, OT, PT. Will allow cardiac diet (daughter prefers avoiding milk/ice cream as she feels this worsens his GERD) after bedside swallow eval as he has had w- u for aspiration and etiology is not a swallowing issue. Bowel motivation w/ senna, docusate (per daughter request) and Miralax as pt has decreased rectal tone resulting from radiation to prostate. Non-weightbearing to RLE. Lovenox/SCD's for DVT Ppx. Code status reviewed with pt and daughter - DNR. Care to return to Dr. Carmona on dismissal back to [place]. 04/15/18 Blood cultures drawn this morning shortly after patient was having episode of chills. Continue current antibiotics pending initial blood cultures-if negative at 48 hours we'll discontinue vancomycin. Oxygenation has improved overall and patient has not had recurrent high-grade fever. MAXIMUM TEMPERATURE following hospitalization 100.2. Leukocytosis significantly improved. Continue respiratory care was with breathing treatments. Continue usual regimen for reflux; speech therapy to reassess in a.m. Episode with altered loss of consciousness following coughing consistent with cough syncope which may of had minor seizure activity associated with it. Replace potassium orally and IV. 04/16/18 Blood cultures from 04/14 and 04/15 negative thus far. Continue current antibiotics pending initial blood cultures-if negative at 48 hours we'll discontinue vancomycin. CXR this am shows improvement in airspace opacities within the L lung base. Replace potassium orally. Review of I&O reveals no BM since admission. Increase senna to 17.2 mg and continue Miralax. Offer MOM and/or supp. 04/17/18 Patient is feeling is better. He no longer requires oxygen. Vitals are stable. Blood cultures are negative to date. Repeat BMP in 1 week to follow up hypokalemia. Will convert from Zosyn to Augmentin and discharge back to [place]. Time spent with patient: discharge greater than 30 minutes Resuscitation Status: Do Not Resuscitate Discharge Plan - Discharge Disposition Discharge Date: 04/17/18 Disposition: 04 To [facility] *Condition: Stable Reason For Visit (Visit label in EMR): pneumonia, hypoxemia - Discharge Medications *Discharge Medications: New PEG 3350 17gm PACKET [Miralax] 17 gm PO DAILY packet Sennosides [Senna Lax] 17.2 mg PO HS tab Amox/Clav [Augmentin] 875 mg PO Q12HR 10 Days tab Potassium Chloride [K-DUR 20 mEq Tablet] 10 meq PO DAILY tab Continue Acetaminophen [Acetaminophen Extra Strength] 500 mg PO Q4H PRN PRN Reason: Pain Docusate Sodium [Colace] 100 mg PO BID PRN PRN Reason: Constipation Nitroglycerin [Nitrostat] 0.4 mg SL Q5MIN3 PRN PRN Reason: Chest Pain Magnesium Hydroxide [Milk of Magnesia] 30 ml PO DAILY PRN PRN Reason: Constipation Ranitidine [Zantac] 150 mg PO HS Albuterol/Ipratropium [Duoneb] 1 unit AEROSOL QID PRN PRN Reason: Shortness Of Air/Wheezing Sucralfate [Carafate] 1 gm PO QID Pramipexole Di-HCl [Mirapex] 0.125 mg PO HS Pantoprazole Sodium [Protonix] 40 mg PO BIDBS Ondansetron HCl [Zofran] 4 mg PO TIDWM Mirtazapine [Remeron] 15 mg PO HS Latanoprost 1 drop EACH EYE HS hydroCHLOROthiazide [Hydrochlorothiazide] 25 mg PO DAILY Atorvastatin [Lipitor] 20 mg PO WS Aspirin [Adult Aspirin] 81 mg PO DAILY Amlodipine [Norvasc] 10 mg PO WS Acetaminophen 650 mg PO BID Pramoxine HCl/Menthol [Gold Menendez Med Anti-Itch Cream] 1 applicatio TP TID PRN PRN Reason: Itching Bisacodyl Supp [Dulcolax] 10 mg RECTALLY DAILY PRN PRN Reason: Constipation Tramadol [Ultram] 50 mg PO BID Magnesium Oxide [Magnesium] 400 mg PO BIDWM Discontinued Sennosides [Senna] 8.6 mg PO DAILY - Discharge Packet/Instructions *Diet: Cardiac diet: Sodium restriction 2 gm. No milk or ice cream *Activity: Non weight bearing on R foot *Pain Management/Treatment: Tylenol PRN *Wound Care: n/a *Expected Signs/Symptoms: Continued improvement *Notify Physician if: You develop fever or increasing shortness of breath *During Business Hours Contact: Nurse at [place] *After Business Hours Contact: Nurse at [place] *Pending Lab/Results: No Pending Lab - Referrals/Follow Up *Referrals/Follow Up: Emperatriz Carmona MD [Physician] - 1 Week - Patient Handouts Patient Handouts: Pneumonia (GEN) - Dismissal Complete Discharge Instructions are:: Complete Physician Narrative - Narrative Physician: Gildardo Bermudez MD Attestation Narrative: Date: 04/17/18 Time: 1108 Have independently interviewed and examined patient prior to discharge. Chart reviewed. Case discussed with my PA; agree with above. Doing well this morning. Breathing well. No f/c. Appetite improving. No ab pain. Lungs: decreased, no distress on RA. CV: regular AB: Soft nt/nd MSE: awake alert appropriate Plan: Medically stable for discharge to [place]. Augmenting for antimicrobial care. F/U with Dr Carmona in 1 week. See orders for details.
--- NOTE | 2018-04-17 08:48 | Extended Care Facility Orders ---
Admission Orders Admit to:: Long-Term Allergies/Adverse Reactions: Allergies No Known Drug Allergies Allergy (Unknown, Verified 04/14/18 10:20) Admitting Diagnosis: pneumonia, hypoxemia Admitting Physician: Gildardo Bermudez MD Attending Physician: Gildardo Bermudez MD Code Status: Do Not Resuscitate Anticiapted Length of Stay: 30 days or less Rehab Potential: good Rehab Prognosis: good Diet: 04/14/18 Lunch Cardiac Diet [DIET] Sodium Restriction: 2GRAM Fat Content: LOW Comment: no ice cream or milk. May use Facility Protocol or Standing Orders: Yes May have flu vaccine: Yes Evaluations/Treatment: Speech, PT, OT Long-Term Certification: I certify that SNF services are required to be given on an Inpatient basis because of the patients need for senior living care on a continuing basis for the condition(s) for which he/she received inpatient hospital services prior to his/her transfer to the SNF. SNF inpatient care is necessary for the following reasons Indication for Long-Term: Other (pt, ot, st) - Additional Information In Event of Arrest: Do Not Start CPR Resident is Aware of Diagnosis: Yes Laboratory/Radiology: Repeat BMP in 1 week to follow hypokalemia Referrals: Emperatriz Carmona MD [Physician] - 1 Week
[2018-04-17] MEDS: PANTOPRAZOLE 40 MG TABLET PO SCH (09:33)
[2018-04-17] MEDS: MAGNESIUM OXIDE 400 MG TABLET PO SCH (09:34)
[2018-04-17] MEDS: ACETAMINOPHEN 325 MG TABLET PO SCH (09:34)
[2018-04-17] MEDS: ASPIRIN *EC* 81 MG TABLET PO SCH (09:34)
[2018-04-17] MEDS: ONDANSETRON 4 MG TABLET PO SCH ×2 (09:34→12:05)
[2018-04-17] MEDS: POLYETHYL GLYCOL 3350 17gm PACKET PO SCH (09:34)
[2018-04-17] MEDS: TRAMADOL 50 MG TABLET PO SCH (09:35)
[2018-04-17] MEDS: ENOXAPARIN 40 MG/0.4 ML INJECTION SQ SCH (09:37)
[2018-04-17] MEDS ORDERED: AMOX/CLAV 875 MG/125 MG TABLET PO SCH (12:00)
[2018-04-17 13:46] VITALS: BP 115/65; PULSE 87; RESP 18; TEMP 97.4; O2SAT 94
== END 2018-04-17 16:00 | DRG 177 ==
LOC: ED 10:17 → SUATTDRO 14:43 → EDHOLD 14:43 → MED 15:02
PROVIDERS: ADMIT Internal Medicine; ATTEND Hospitalist